=== PATIENT | male | born 1975 | race African-American/Black ===

== ENCOUNTER 2016-08-19 18:55 | Emergency (ER) | payer MEDICAID, OTHER ==
[~2016-08-19] VITALS: Ht 175.3 cm; Wt 80.0 kg
[2016-08-19] MEDS ORDERED: KETOROLAC 30MG/ML VIAL IV STA (21:28)
[2016-08-19] MEDS ORDERED: ONDANSETRON HCL 4MG/2ML VIAL IV STA (21:28)
[2016-08-19] MEDS ORDERED: SODIUM CHLORIDE 0.9% 1,000 ML IV ONE (21:28)
[2016-08-19 21:55] LABS: BASOPHILS % 0.6 % (0.0-2.0); EOSINOPHILS % 0.1 % (0.0-5.0); HEMATOCRIT. 41.5 % (42.0-52.0); MEAN CORPUSCULAR HEMOGLOBIN 30.2 pg (28.0-32.0); MEAN CORPUSCULAR HGB CONC 33.7 g/dL (31.0-37.0); MEAN CORPUSCULAR VOLUME 89.7 fL (80.0-94.0); MEAN PLATELET VOLUME 6.9 fl (7.4-10.4); MONOCYTES % 2.1 % (2.0-8.0); NEUTROPHILS % 85.2 % (40.0-76.0); PLATELET 255 x1000/uL (130-400); RED BLOOD CELL COUNT 4.62 mill/uL (4.7-6.1); RED CELL DISTRIBUTION WIDTH 13.9 % (11.6-14.6); WHITE BLOOD COUNT 12.4 x1000/uL (4.5-11.0)
[2016-08-19 22:10] LABS: ALANINE AMINOTRANSFERASE 33 IU/L (13-61); ALBUMIN 3.9 g/dL (3.4-5.0); ANION GAP 13; CALCIUM 9.1 mg/dL (8.5-10.1); CARBON DIOXIDE 27 mEq/L (21-32); CHLORIDE 104 mEq/L (98-107); INDEX HEMOLYSI 1 (1-3); INDEX ICTERIC 1 (1-4); INDEX LIPEMIC 1 (1-3); LIPASE 97 IU/L (73-393); UREA NITROGEN BLOOD 17 mg/dL (7-21); eGFR > 60 mL/min (>60)
[2016-08-19 22:18] LABS: INR 1.3; PROTHROMBIN TIME 13.4 sec
[2016-08-19] MEDS ORDERED: MORPHINE SULFATE 4 MG/ML CPJ (NOT FOR IM USE) IV ONE (22:45)
[2016-08-19 23:00] LABS: CLARITY URINE TURBID (CLEAR); COLOR URINE YELLOW (YELLOW); GLUCOSE URINE NEGATIVE (NEGATIVE); KETONES URINE 1+ (NEGATIVE); LEUKOCYTE ESTERASE URINE NEGATIVE (NEGATIVE); NITRITE URINE NEGATIVE (NEGATIVE); OCCULT BLOOD URINE NEGATIVE (NEGATIVE); PH URINE >=9.0 (4.5-8.0); PROTEIN URINE 1+ (NEGATIVE); SPECIFIC GRAVITY URINE 1.026 (1.005-1.030)
[2016-08-19 23:13] LABS: *AMPHETAMINES SCREEN URINE NEGATIVE (NEGATIVE); *BARBITURATES SCREEN URINE NEGATIVE (NEGATIVE); *BENZODIAZEPINES SCREEN URINE NEGATIVE (NEGATIVE); *COCAINE SCREEN URINE PRESUMTIVE POSITIVE (NEGATIVE); CANNABINOID URINE SCREEN PRESUMTIVE POSITIVE (NEGATIVE); ECSTASY MDMA SCREEN URINE NEGATIVE (NEGATIVE); METHADONE URINE SCREEN NEGATIVE (NEGATIVE); OPIATES URINE SCREEN NEGATIVE (NEGATIVE); PHENCYCLIDINE URINE SCREEN NEGATIVE (NEGATIVE)
[2016-08-19 23:31] LABS: AMORPHOUS SEDIMENT URINE 2+ /lpf; RBC URINE 0-2 /hpf (0-2); WBC URINE 0-2 /hpf (0-2)
[2016-08-19 23:32] LABS: SQUAMOUS EPITHELIAL CELL URINE RARE /lpf (RARE/1+)
[2016-08-19 23:33] LABS: BACTERIA URINE 1+
[2016-08-20] MEDS ORDERED: LORAZEPAM 2MG/ML CPJ IV ONE (00:15)
[2016-08-20 01:02] LABS: CREATINE KINASE 559 IU/L (39-308); INDEX HEMOLYSI 1 (1-3)
[2016-08-20 03:54] VITALS: BP 143/74
== END 2016-08-20 03:58 | disposition home or self-care (01) ==
LOC: ER 19:47
DX: R10.9 Unspecified abdominal pain (principal); F14.10 Cocaine abuse, uncomplicated
CPT/HCPCS: 36415; 80053; 80305; 81001; 82550; 83690; 85025; 85610; 96361; 96374; 96375; 99284; J1885; J2060; J2270; J2405; J7030; Z7610

== ENCOUNTER 2022-09-30 04:13 | Emergency (ER) | payer MEDICAID, OTHER ==
[~2022-09-30] VITALS: Ht 167.6 cm; Wt 75.0 kg
[2022-09-30 04:16] VITALS: O2SAT 98
[2022-09-30 05:47] LABS: BASOPHILS % 1.1 % (0.0-2.0); EOSINOPHILS % 0.2 % (0.0-5.0); HEMATOCRIT. 47.1 % (42.0-52.0); HEMOGLOBIN. 15.8 g/dL (14.0-18.0); MEAN CORPUSCULAR HEMOGLOBIN 29.5 pg (28.0-32.0); MEAN CORPUSCULAR HGB CONC 33.5 g/dL (31.0-37.0); MEAN CORPUSCULAR VOLUME 88.2 fL (80.0-94.0); MEAN PLATELET VOLUME 8.6 fl (7.4-10.4); MONOCYTES % 5.2 % (2.0-8.0); NEUTROPHILS % 71.5 % (40.0-76.0); PLATELET 229 x1000/uL (130-400); RED BLOOD CELL COUNT 5.34 mill/uL (4.7-6.1); RED CELL DISTRIBUTION WIDTH 16.6 % (11.6-14.6); WHITE BLOOD COUNT 11.4 x1000/uL (4.5-11.0)
[2022-09-30 05:58] LABS: CHLORIDE 106 mEq/L (98-107); INDEX HEMOLYSI 1 (1-3); INDEX ICTERIC 2 (1-4); INDEX LIPEMIC 1 (1-3); POTASSIUM 4.9 mEq/L (3.5-5.1); SODIUM 135 mEq/L (136-145)
[2022-09-30 06:08] LABS: ALANINE AMINOTRANSFERASE 66 IU/L (13-61); ALBUMIN 3.5 g/dL (3.4-5.0); ASPARTATE AMINOTRANSFERASE 47 IU/L (15-37); BILIRUBIN TOTAL 2.6 mg/dL (0.1-1.0); CALCIUM 8.9 mg/dL (8.5-10.1); CARBON DIOXIDE 23 mEq/L (21-32); CREATININE 1.3 mg/dL (0.6-1.3); GLUCOSE 110 mg/dL (70-105); NT PRO B-TYPE NATRIURETIC PEP 4266 pg/mL (5-125); PROTEIN TOTAL 7.3 g/dL (6.0-8.3); TROPONIN I HIGH SENSITIVITY 47 ng/L (<78); UREA NITROGEN BLOOD 20 mg/dL (7-21)
[2022-09-30] MEDS ORDERED: FUROSEMIDE 40MG/4ML VIAL IVP ONE (06:30)
[2022-09-30] MEDS ORDERED: ENALAPRIL 2.5MG/2ML VIAL 2ML IV ONE (06:30)
[2022-09-30] MEDS ORDERED: ENALAPRIL 1.25MG/ML VIAL 1ML IV SCH (06:30)
[2022-09-30 08:37] VITALS: TEMP 97.3
[2022-09-30 08:48] LABS: TROPONIN I HIGH SENSITIVITY 41 ng/L (<78)
[2022-09-30] MEDS ORDERED: MORPHINE SULFATE 4 MG/ML CPJ (NOT FOR IM USE) IV ONE (09:00)
[2022-09-30 16:03] VITALS: BP 125/81; PULSE 88; RESP 20
== END 2022-09-30 16:02 ==
LOC: ER 04:13
DX: I50.9 Heart failure, unspecified (principal); R06.02 Shortness of breath; Z20.822 Contact with and (suspected) exposure to COVID-19
CPT/HCPCS: 80053; 83880; 85025; 85379; 84484; 36415; 71045; 71275; 96374; 96375; 99285; 87426; J3490; J1940; J2270; C9803; Z7610 ×4

== ENCOUNTER 2023-07-03 00:33 | Inpatient (IN) | payer OTHER ==
[~2023-07-03] VITALS: Ht 170.2 cm; Wt 72.1 kg
[2023-07-03 00:45] VITALS: O2SAT 98
[2023-07-03] MEDS: FUROSEMIDE 40MG/4ML VIAL IV ONE (02:30)
[2023-07-03 02:57] LABS: BASOPHILS % 0.8 % (0.0-2.0); EOSINOPHILS % 0.3 % (0.0-5.0); HEMOGLOBIN. 15.1 g/dL (14.0-18.0); MEAN CORPUSCULAR HGB CONC 34.3 g/dL (31.0-37.0); MEAN CORPUSCULAR VOLUME 90.4 fL (80.0-94.0); MEAN PLATELET VOLUME 7.7 fl (7.4-10.4); MONOCYTES % 3.8 % (2.0-8.0); NEUTROPHILS % 78.1 % (40.0-76.0); PLATELET 275 x1000/uL (130-400); RED BLOOD CELL COUNT 4.86 mill/uL (4.7-6.1); WHITE BLOOD COUNT 11.3 x1000/uL (4.5-11.0)
[2023-07-03 03:23] LABS: ALANINE AMINOTRANSFERASE 51 IU/L (10-49); ALBUMIN 4.1 g/dL (3.2-4.8); ASPARTATE AMINOTRANSFERASE 58 IU/L (<34); BILIRUBIN TOTAL 1.4 mg/dL (0.1-1.0); CALCIUM 8.7 mg/dL (8.7-10.4); CARBON DIOXIDE 25 mEq/L (21-32); CHLORIDE 103 mEq/L (98-107); CREATININE 1.3 mg/dL (0.6-1.3); GLUCOSE 119 mg/dL (70-105); POTASSIUM 4.6 mEq/L (3.5-5.1); PROTEIN TOTAL 6.9 g/dL (6.0-8.3); SODIUM 133 mEq/L (136-145); TROPONIN I HIGH SENSITIVITY 48 ng/L (3.0-53); UREA NITROGEN BLOOD 19 mg/dL (9-23)
[2023-07-03 05:48] LABS: TROPONIN I HIGH SENSITIVITY 38 ng/L (3.0-53)
[2023-07-03] MEDS ORDERED: ACETAMINOPHEN 325MG TABLET PO PRN (09:45)
[2023-07-03] MEDS ORDERED: ONDANSETRON HCL 4MG/2ML INJ IV PRN (09:45)
[2023-07-03] MEDS ORDERED: IPRATROPIUM/ALBUTEROL 0.5-3(2.5)MG/3ML NEB HHN PRN (09:45)
[2023-07-03] MEDS ORDERED: DOCUSATE SODIUM 100MG CAPSULE PO PRN (09:45)
[2023-07-03] MEDS ORDERED: CLONIDINE 0.1MG TABLET PO PRN (09:45)
[2023-07-03 10:46] VITALS: BP 136/103; PULSE 56; RESP 18; TEMP 97.3
[2023-07-03 11:16] VITALS: TEMP 97.6
[2023-07-03] MEDS: ACETAMINOPHEN 325MG TABLET PO PRN (11:16)
[2023-07-03 11:18] VITALS: PULSE 117
[2023-07-03] MEDS: DILTIAZEM HCL 30MG TABLET PO SCH (11:18)
[2023-07-04] MEDS ORDERED: FUROSEMIDE 40MG/4ML VIAL IVP SCH (09:00)
== END 2023-07-03 11:45 | disposition short-term general hospital (02) | DRG 194 ==
LOC: ER 00:33 → 7EST 08:28 → EDBEDREQTM 08:30 → EDBEDREQ 08:30
PROVIDERS: ADMIT Internal Medicine; ATTEND Internal Medicine
DX: I11.0 Hypertensive heart disease with heart failure (principal); J96.00 Acute respiratory failure, unspecified whether with hypoxia or hypercapnia; I50.9 Heart failure, unspecified; E78.5 Hyperlipidemia, unspecified; F15.90 Other stimulant use, unspecified, uncomplicated; Z91.148 Patient's other noncompliance with medication regimen for other reason
CPT/HCPCS: 36415; 71045; 80053; 83880; 84484; 85025; 93970; 99285; J1940